=== PATIENT | male | born 1965 | race Caucasian/White ===

== ENCOUNTER 2017-02-06 19:41 | Emergency (ER) | payer MEDICAID, OTHER ==
[~2017-02-06] VITALS: Ht 170.2 cm; Wt 77.5 kg
[2017-02-06 19:54] VITALS: Ht 170.2 cm; Wt 77.5 kg
[2017-02-06] MEDS ORDERED: KETOROLAC 60 MG INJ IM STA (22:11)
[2017-02-06] MEDS ORDERED: morphine 10 MG INJ IM ONE (22:30)
--- NOTE | 2017-02-06 23:39 | RADRPT ---
PROCEDURE: X-ray cervical spine CLINICAL INDICATION: Strange muscle. TECHNIQUE: 3 views cervical spine COMPARISON: None FINDINGS: C7 level and C7-T1 interval are not included on the film and recommend CT correlation. Otherwise, n o acute fracture. IMPRESSION: 1. Recommend CT examination the cervical spine for evaluation of C7 level and C7-T1 interval, which are not visualized. 2. Limited partially visualized portions of the cervical spine are without acute fracture. RPTAT: [facility] Physician Earnestine Date Time Electronically viewed and signed by Physician Earnestine on 02/06/2017 23:38 RS/
[2017-02-07] MEDS ORDERED: HYDR-906 PO (00:29)
[2017-02-07] MEDS ORDERED: NAPR-688 PO (00:29)
[2017-02-07] MEDS ORDERED: ORPH100T PO (00:29)
--- NOTE | 2017-02-07 00:35 | ERD ---
ER Documentation Chief Complaint Date/Time DATE: 02/07/17 TIME: 00:31 Chief Complaint bib self, cc: neck pain s/p accident at work HPI This 51-year-old male complains of right sided neck pain going from the base of his skull down his right trapezius got worse since yesterday when he was carrying something at work over his head when he had it pushed against his head and a compressive force and strain his head to one side. It did not actually impact his head but was more of a gradual compression. He has been moving his neck since then but it feels stiff on that side. He has no neurological symptoms no change in vision. ROS All systems reviewed and are negative except as per history of present illness. Medications Home Meds Active Scripts Hydrocodone/Acetaminophen ([place] 5-325 Tablet) 1 Each Tablet, 1 EACH PO Q6 for SEVERE PAIN LEVEL 7-10, #14 TAB Prov:TATYANA CERVANTES DO 02/07/17 Naproxen* (Naproxen*) 500 Mg Tablet, 500 MG PO BID, #20 TAB Prov:GREENTATYANA DO 02/07/17 Orphenadrine Citrate (Norflex) 100 Mg Tablet.sa, 100 MG PO BID for MUSCLE SPASMS , #14 TAB.SA Prov:TATYANA CERVANTES DO 02/07/17 Allergies Allergies: Coded Allergies: No Known Allergy (Unverified , 02/06/17) PMhx/Soc History of Surgery: Yes (FACE, MOUTH) Anesthesia Reaction: No Hx Neurological Disorder: No Hx Respiratory Disorders: No Hx Cardiac Disorders: No Hx Psychiatric Problems: No Hx Miscellaneous Medical Probl: No Hx Alcohol Use: Yes (SOCIAL) Hx Substance Use: No Hx Tobacco Use: No Smoking Status: Former smoker Physical Exam Vitals Vital Signs Date Time Temp Pulse Resp B/P Pulse Ox O2 Delivery O2 Flow Rate FiO2 02/06/17 19:54 98.2 80 18 151/99 100 Physical Exam Const: [] No acute distress Head: Atraumatic Eyes: Normal Conjunctiva ENT: Normal External Ears, Nose and Mouth. Neck: Right paraspinal muscle spasm palpable with tenderness to palpation along right paraspinal, no midline tenderness, bilateral upper trapezius muscle spasm as well with right greater than left. Neur: Awake and alertAnd oriented 3, cranial nerves II through XII intact, no cerebellar deficits, normal gait Psych: Normal Mood and Affect Results 24 hrs Current Medications Medications (Trade) Dose Ordered Sig/Trey Route PRN Reason Start Time Stop Time Status Last Admin Dose Admin Morphine Sulfate (morphine) 4 mg ONCE ONCE IM 02/06/17 22:30 02/06/17 22:31 DC 02/06/17 22:22 Ketorolac Tromethamine (Toradol) 60 mg ONCE STAT IM 02/06/17 22:11 02/06/17 22:14 DC 02/06/17 22:22 Procedures/MDM Likely right sided muscle strain. He was given an injection of morphine as well as Toradol intramuscularly. Stated his pain was almost completely controlled. However the bottom vertebrae were not visualized. I spoke with the patient by this given a copy of his x-ray report. He does not want to wait and elects to not get the CT scan at this time. I am going to discharge Norflex , naproxen, [place]. Giving PCP follow-up and return precautions to the ER for any continuing pain that is not controlled as the complete C-spine was not visualized. Cervical spine x-ray interpretation: I see no acute process. I see no fracture subluxation. Radiologist mentions inability to see the junction of C7-T1 recommends CT scan for this. Departure Diagnosis: Primary Impression: Neck strain Condition: Stable Patient Instructions: Neck Sprain/Strain Referrals: [facility] YOU HAVE RECEIVED A MEDICAL SCREENING EXAM AND THE RESULTS INDICATE THAT YOU DO NOT HAVE A CONDITION THAT REQUIRES URGENT TREATMENT IN THE EMERGENCY DEPARTMENT. FURTHER EVALUATION AND TREATMENT OF YOUR CONDITION CAN WAIT UNTIL YOU ARE SEEN IN YOUR DOCTORS OFFICE WITHIN THE NEXT 1-2 DAYS. IT IS YOUR RESPONSIBILITY TO MAKE AN APPOINTMENT FOR FOLOW-UP CARE. IF YOU HAVE A PRIMARY DOCTOR --you should call your primary doctor and schedule an appointment IF YOU DO NOT HAVE A PRIMARY DOCTOR YOU CAN CALL OUR PHYSICIAN REFERRAL HOTLINE AT IF YOU CAN NOT AFFORD TO SEE A PHYSICIAN YOU CAN CHOSE FROM THE FOLLOWING [facility] [address] [facility] [address] [facility] [address] [facility] [address] [facility]. [facility] [address] [facility]. [facility] [address] Additional Instructions: Llame al doctor MAANA y mckayla jem RUBIO PARA DENTRO DE 2-3 THOMPSON.Dgale a la secretaria que nosotros le instruimos hacer esta rubio.Avise o llame si bauman condicin se empeora antes de la rubio. Regresa aqui si peor o no mejor. TATYANA CERVANTES DO Feb 07, 2017 00:35
== END 2017-02-07 00:39 | disposition left against medical advice (07) ==
LOC: FTE 19:41
DX: S16.1XXA Strain of muscle, fascia and tendon at neck level, initial encounter (principal); X50.0XXA Overexertion from strenuous movement or load, initial encounter; Y92.89 Other specified places as the place of occurrence of the external cause
CPT/HCPCS: 72040; 96372; J1885; J2270; Z7502